=== PATIENT | female | born 1970 | race Two or more races ===

== ENCOUNTER 2024-12-04 12:34 | Emergency (ER) | payer SELFPAY ==
[~2024-12-04] VITALS: Ht 157.5 cm; Wt 64.0 kg
[2024-12-04 12:39] VITALS: O2SAT 98
[2024-12-04] MEDS: HYDROCODONE/ACETAMINOPHEN 5/325MG TABLET PO STA (13:27)
[2024-12-04] MEDS ORDERED: OXYC-100 MT (16:28)
[2024-12-04] MEDS: OXYCODONE HCL/ACETAMINOPHEN 5/325MG TABLET PO STA (17:27)
[2024-12-04 17:39] VITALS: BP 150/80; PULSE 75; RESP 18; TEMP 36.9; O2SAT 99
== END 2024-12-04 17:41 | disposition home or self-care (01) ==
LOC: ER 12:34
DX: S82.042A Displaced comminuted fracture of left patella, initial encounter for closed fracture (principal); I10 Essential (primary) hypertension; Z88.0 Allergy status to penicillin; W19.XXXA Unspecified fall, initial encounter; Y93.89 Activity, other specified; Y92.89 Other specified places as the place of occurrence of the external cause; Y99.0 Civilian activity done for income or pay
CPT/HCPCS: 73562; 99283; Z7610; L1830